=== PATIENT | female | born 1960 | race Two or more races ===

== ENCOUNTER 2024-10-24 08:00 | Outpatient (CLI) | payer OTHER ==
[~2024-10-24] VITALS: Ht 165.1 cm; Wt 104.3 kg
[2024-10-24 08:00] VITALS: BP 143/90
[~2024-10-24 08:00] MED LIST: COZAAR25 MG PO; CRESTOR40 MG PO; SYNTHROID75 MCG PO; TOPROL XL50 M1 PO; ZETIA10 MG PO
[2024-10-24 08:06] LABS: URINE APPEARANCE Clear; URINE BILIRRUBIN Negative (NEGATIVE); URINE BLOOD NHT; URINE COLOR Yellow; URINE GLUCOSE Negative (NEGATIVE); URINE KETONE Negative (NEGATIVE); URINE LEUKOCYTE Negative; URINE NITRATE Negative; URINE PROTEIN Negative (NEGATIVE); URINE UROBILINOGEN 0.2 E.U./dl
[2024-10-24 08:11] LABS: URINE BACTERIA 74.3 uL (0.0-1933); URINE EPITHELIAL CELLS 12.3 uL (0.0-38.8); URINE RBC 28.7 uL (0.0-20.8); URINE WBC 3.6 uL (0.0-23.2)
[2024-10-24 08:15] LABS: BASO % 0.4 % (0.1-1.2); EOS # 0.27 (0.04-0.54); EOS % 2.3 % (0.7-7.0); LYMPH # 2.51 (1.18-3.74); LYMPH % 21.3 % (19.3-53.1); MEAN PLATELET VOLUME 10.20 fl (9.4-12.4); MONO # 1.01 (0.24-0.82); MONO % 8.6 % (4.7-12.5); NEUT # 7.93 (1.56-6.13); NEUT % 67.1 % (34.0-71.1); RED CELL DISTRIBUTION WIDTH 14.6 % (11.6-14.4)
[2024-10-24 08:27] LABS: URINE CAST 0.14 uL (0.0-1.40)
[2024-10-24 08:41] LABS: INR 1.02
[2024-10-24 09:51] LABS: ALT/SGPT 19.0 U/L (12-78); AST/SGOT 15.0 U/L (15-37); BILIRUBIN TOTAL 0.51 mg/dL (0.3-1.2); BUN CREA RATIO 16.0 (7.0-25.0); CREATININE SERUM 0.82 mg/dL (0.55-1.02); GFR 69.75; GLOBULINA 4.4 G/DL (2.4-3.5); GLUCOSE FASTING 91.0 mg/dL (65-100); OSMOLALITY SERUM 285.0 MOSM/KG (275-295)
== END 2024-10-30 08:15 | disposition home or self-care (01) ==
LOC: LAB 08:00 → ADM 08:45 → LAB 10-30 08:15 → CIR.AMB 10-30 08:45 → EDSTATUS 10-30 08:45 → CIR.AMB 10-30 09:15
PROVIDERS: ATTEND Surgery
DX: K80.20 Calculus of gallbladder without cholecystitis without obstruction (principal)

== ENCOUNTER 2024-12-09 06:00 | Day surgery (SDC) | payer OTHER ==
[2024-12-03 07:55] LABS: URINE APPEARANCE Clear; URINE BILIRRUBIN Negative (NEGATIVE); URINE BLOOD Negative; URINE COLOR Yellow; URINE GLUCOSE Negative (NEGATIVE); URINE KETONE Negative (NEGATIVE); URINE LEUKOCYTE Negative; URINE NITRATE Negative; URINE PROTEIN Negative (NEGATIVE); URINE UROBILINOGEN 0.2 E.U./dl
[2024-12-03 07:56] LABS: URINE BACTERIA 25.1 uL (0.0-1933); URINE EPITHELIAL CELLS 12.7 uL (0.0-38.8); URINE RBC 11.1 uL (0.0-20.8); URINE WBC 3.8 uL (0.0-23.2)
[2024-12-03 07:59] LABS: BASO % 0.8 % (0.1-1.2); EOS # 0.24 (0.04-0.54); EOS % 3.3 % (0.7-7.0); LYMPH # 3.16 (1.18-3.74); LYMPH % 44.0 % (19.3-53.1); MEAN PLATELET VOLUME 10.30 fl (9.4-12.4); MONO # 0.54 (0.24-0.82); MONO % 7.5 % (4.7-12.5); NEUT # 3.15 (1.56-6.13); NEUT % 44.0 % (34.0-71.1); RED CELL DISTRIBUTION WIDTH 15.5 % (11.6-14.4)
[2024-12-03 08:04] LABS: URINE CAST 0.00 uL (0.0-1.40)
[2024-12-03 08:12] VITALS: BP 144/86
[2024-12-03 08:46] LABS: ALT/SGPT 17.0 U/L (12-78); AST/SGOT 16.0 U/L (15-37); BILIRUBIN TOTAL 0.32 mg/dL (0.3-1.2); BUN CREA RATIO 20.0 (7.0-25.0); CREATININE SERUM 0.88 mg/dL (0.55-1.02); GFR 64.29; GLOBULINA 4.1 G/DL (2.4-3.5); GLUCOSE FASTING 98.0 mg/dL (65-100); OSMOLALITY SERUM 287.0 MOSM/KG (275-295)
[2024-12-03 08:52] LABS: INR 0.99
[~2024-12-09] VITALS: Ht 165.1 cm; Wt 105.2 kg
[2024-12-09] MEDS ORDERED: CEFAZOLIN SODIUM 1,000 MG VIAL IV ONE (08:30)
[2024-12-09] MEDS ORDERED: MORPHINE SULFATE 4 MG/ML VIAL IV ONE ×2 (09:00→09:30)
[2024-12-09] MEDS ORDERED: SUGAMMADEX SODIUM 200 MG/2 ML VIAL IV ONE (13:15)
== END 2024-12-09 11:00 | disposition home or self-care (01) ==
LOC: CIR.AMB 06:00
PROVIDERS: ATTEND Surgery
DX: K81.1 Chronic cholecystitis (principal); Z91.012 Allergy to eggs; Z91.013 Allergy to seafood; Z88.8 Allergy status to other drugs, medicaments and biological substances